=== PATIENT | male | born 2000 | race Two or more races ===

== ENCOUNTER 2025-05-22 15:18 | Emergency (ER) | payer OTHER ==
[~2025-05-22] VITALS: Ht 180.3 cm; Wt 117.9 kg
[2025-05-22 17:15] LABS: BASO % 0.2 % (0.1-1.2); EOS # 0.02 (0.04-0.54); EOS % 0.1 % (0.7-7.0); LYMPH # 1.61 (1.18-3.74); LYMPH % 8.1 % (19.3-53.1); MEAN PLATELET VOLUME 9.80 fl (9.4-12.4); MONO # 1.66 (0.24-0.82); MONO % 8.4 % (4.7-12.5); NEUT # 16.34 (1.56-6.13); NEUT % 82.6 % (34.0-71.1); RED CELL DISTRIBUTION WIDTH 12.7 % (11.6-14.4)
[2025-05-22 17:58] LABS: COVID-19 AG NEGATIVE (NEGATIVE)
[2025-05-22] MEDS ORDERED: ACETAMINOPHEN500 M1 PO (19:24)
[2025-05-22] MEDS ORDERED: AZITHROMYCIN500 MG PO (19:24)
[2025-05-22] MEDS ORDERED: GILTUSS COUGH-118 M1 PO (19:24)
== END 2025-05-22 19:28 | disposition home or self-care (01) ==
LOC: ER 15:49
PROVIDERS: Preventive Medicine Public Health & General Preventive Medicine
DX: J06.9 Acute upper respiratory infection, unspecified (principal); J00 Acute nasopharyngitis [common cold]; Z20.822 Contact with and (suspected) exposure to COVID-19